=== PATIENT | female | born 1975 | race Caucasian/White ===

== ENCOUNTER 2019-09-24 12:29 | Emergency (ER) | payer OTHER ==
[~2019-09-24] VITALS: Ht 149.9 cm; Wt 89.4 kg
[2019-09-24 12:50] VITALS: Ht 149.9 cm; Wt 89.4 kg
[2019-09-24 14:19] VITALS: BP 132/83
== END 2019-09-24 14:19 | disposition home or self-care (01) ==
LOC: ED 12:29
DX: S20.212A Contusion of left front wall of thorax, initial encounter (principal); N39.0 Urinary tract infection, site not specified; V49.9XXA Car occupant (driver) (passenger) injured in unspecified traffic accident, initial encounter; Y93.I9 Activity, other involving external motion; Y92.413 State road as the place of occurrence of the external cause; Y99.8 Other external cause status